=== PATIENT | female | born 1975 | race Caucasian/White ===

== ENCOUNTER 2022-08-03 08:19 | Outpatient (CLI) | payer BC | END 2022-08-03 08:20 | disposition home or self-care (01) | LOC: CSHRAD 08:19 | PROVIDERS: ATTEND Internal Medicine | DX: M25.562 Pain in left knee (principal) ==

== ENCOUNTER 2024-10-23 07:46 | Outpatient (CLI) | payer BC | END 2024-10-23 07:47 | disposition home or self-care (01) | LOC: CSHMAMMO 07:46 | PROVIDERS: ATTEND Physician Assistant | DX: N64.4 Mastodynia (principal); Z80.3 Family history of malignant neoplasm of breast | CPT/HCPCS: 77066; G0279 ==